=== PATIENT | male | born 1970 | race Caucasian/White ===

== ENCOUNTER 2017-04-24 17:45 | Emergency (ER) | payer OTHER ==
[~2017-04-24] VITALS: Wt 72.7 kg
[2017-04-24 18:09] VITALS: Wt 72.7 kg
[2017-04-24] MEDS ORDERED: IBUP-1542 PO (21:01)
--- NOTE | 2017-04-24 21:15 | ERD ---
ER Documentation Chief Complaint Date/Time DATE: 04/24/17 TIME: 21:08 Chief Complaint ru side pain HPI 47-year-old male is complaining of discomfort in his right upper quadrant area for last 2 days. Patient described his as a soreness or tenderness, sometimes cramp-like. The discomfort is continuous, but worse when he coughs or when he moves. Discomfort is not related to food intake. Denies any injuries. Denies shortness of breath. Denies fever or chills. Denies nausea, vomiting, or diarrhea. Denies dysuria ROS All systems reviewed and are negative except as per history of present illness. Medications Home Meds Active Scripts Ibuprofen* (Motrin*) 600 Mg Tab, 600 MG PO Q6H Y for PAIN AND OR ELEVATED TEMP, #30 TAB Prov:WHIT GENTILE MICA INSPECTOR 04/24/17 Allergies Allergies: Coded Allergies: No Known Allergy (Unverified , 11/03/14) PMhx/Soc Medical and Surgical Hx: pt denies Medical Hx, pt denies Surgical Hx History of Surgery: No Anesthesia Reaction: No Hx Neurological Disorder: No Hx Respiratory Disorders: No Hx Cardiac Disorders: No Hx Psychiatric Problems: No Hx Miscellaneous Medical Probl: No Hx Alcohol Use: No Hx Substance Use: No Hx Tobacco Use: No Smoking Status: Never smoker Physical Exam Vitals Vital Signs Date Time Temp Pulse Resp B/P Pulse Ox O2 Delivery O2 Flow Rate FiO2 04/24/17 18:09 98.3 97 20 131/76 98 Physical Exam General: Well-developed, well-nourished, conscious and coherent, in no distress Skin: Warm and dry without rash, good texture and turgor Head: Normocephalic without evidence of trauma Eyes: Sclera and conjunctivae normal; pupils equal, round, and reactive to light; extraocular movements are intact Chest: Normal AP diameter. Good expansion without retractions. Nontender. Lungs are clear to auscultate bilaterally with good tidal volume. Reproducible tenderness noted on the right lower ribs. Heart: Regular rate and rhythm. No murmur, rub, or gallops heard Abdomen: Soft and nontender without masses, guarding, or rebound. Bowel sounds are active. No hepatosplenomegaly. Back: Without spinal or CVA tenderness Pelvis: Nontender to palpation and stable to compression Extremities: Full range of motion. Good strength bilaterally. No clubbing, cyanosis, or edema. Peripheral pulses are intact. Sensation intact Neuro: Alert and oriented 4, GCS 15. Cranial nerves grossly intact. Motor and sensory exams nonfocal. Moves all extremities. Speech clear. Gait normal Procedures/MDM Well-appearing 47-year-old male present ED with discomfort in the right upper quadrant/right lower ribs. Patient does have reproducible point tenderness in the right lower ribs region. He did not have any abdominal tenderness on exam. Her low suspicion for acute appendicitis, cholecystitis, pancreatitis, bowel obstruction, or other acute abdomen. Likely has a muscle strain of the abdominal wall. Patient appears well, stable for discharge and outpatient management. Medical decision making shared with patient and family. Education provided to patient and family. Patient and family expressed understanding of the plan. Medications on discharge: Ibuprofen. Follow-up: Primary care provider in 2-3 days or return to ED if worse. Disclaimer: Inadvertent spelling and grammatical errors are likely due to EHR/ dictation software use and do not reflect on the overall quality of patient care. Also, please note that the electronic time recorded on this note does not necessarily reflect the actual time of the patient encounter. Departure Diagnosis: Primary Impression: Abdominal wall strain Encounter type: initial encounter Qualified Code: S39.011A - Strain of abdominal wall, initial encounter Condition: Stable Patient Instructions: Muscle Strain, Abdomen Referrals: DOCTOR,NOT ON STAFF Additional Instructions: Call your primary care doctor TOMORROW for an appointment during the next 2-3 days.See the doctor sooner or return here if your condition worsens before your appointment time. WHIT GENTILE NP Apr 24, 2017 21:15
== END 2017-04-24 21:36 | disposition home or self-care (01) ==
LOC: FTE 17:45
DX: S39.011A Strain of muscle, fascia and tendon of abdomen, initial encounter (principal); X58.XXXA Exposure to other specified factors, initial encounter; Y92.9 Unspecified place or not applicable
CPT/HCPCS: 99283

== ENCOUNTER 2017-11-30 20:10 | Emergency (ER) | END 2017-11-30 22:21 | disposition home or self-care (01) ==

== ENCOUNTER 2018-09-06 20:22 | Emergency (ER) | payer OTHER ==
[~2018-09-06] VITALS: Ht 180.3 cm; Wt 81.4 kg
[~2018-09-06 20:22] MED LIST: IBUP-1542 PO; OMEP20CA16 PO; ONDA4TAB14 PO; RANI150T35 PO
[2018-09-06 20:32] VITALS: BP 131/82; PULSE 86; RESP 18; Ht 180.3 cm; Wt 81.4 kg
[2018-09-06] MEDS ORDERED: CEPH-443 PO (23:24)
[2018-09-06] MEDS ORDERED: ACET500C5 PO (23:24)
--- NOTE | 2018-09-06 23:28 | ERD ---
ER Documentation Chief Complaint Chief Complaint pain/bruise left hand, glf about 5 days ago HPI 48-year-old male presents here to emergency department for complaints of an abrasion on the left head, fell on the head 5 days ago, had an abrasion on it, it is now red swollen with some yellowish discoloration, complains of pain throbbing pain, 4/10 scale, as was upon touching the area. Patient denies any joint deformity, denies any limitation of movement of the joint, denies any numbness or tingling, denies any fever or chills. Patient did not take any medications to help with symptoms ROS All systems reviewed and are negative except as per history of present illness. Medications Home Meds Active Scripts Cephalexin* (Keflex*) 500 Mg Capsule, 500 MG PO QID for 10 Days, CAP Prov:MEDARDO ROBLEDO NP 09/06/18 Acetaminophen* (Tylophen*) 500 Mg Capsule, 1 CAP PO Q6H PRN for PAIN AND OR ELEVATED TEMP, #20 CAP Prov:MEDARDO ROBLEDO NP 09/06/18 Ondansetron (Ondansetron Odt) 4 Mg Tab.rapdis, 4 MG PO Q6H PRN for NAUSEA AND/OR VOMITING, #20 TAB Prov:MUSTAPHA MCNEIL PA-C 11/30/17 Ranitidine Hcl* (Zantac*) 150 Mg Tablet, 150 MG PO BID PRN for EPIGASTRIC PAIN, #30 TAB Prov:MUSTAPHA CMNEIL PA-C 11/30/17 Omeprazole* (Omeprazole*) 20 Mg Capsule.dr, 20 MG PO DAILY, #20 Prov:MUSTAPHA MCNEIL PA-C 11/30/17 Ibuprofen* (Motrin*) 600 Mg Tab, 600 MG PO Q6H PRN for PAIN AND OR ELEVATED TEMP, #30 TAB Prov:WHIT GENTILE NP 04/24/17 Allergies Allergies: Coded Allergies: No Known Allergy (Unverified , 11/03/14) PMhx/Soc Medical and Surgical Hx: pt denies Medical Hx, pt denies Surgical Hx History of Surgery: No Anesthesia Reaction: No Hx Neurological Disorder: No Hx Respiratory Disorders: No Hx Cardiac Disorders: No Hx Psychiatric Problems: No Hx Miscellaneous Medical Probl: No Hx Alcohol Use: Yes Hx Substance Use: No Hx Tobacco Use: No Smoking Status: Never smoker FmHx Family History: No diabetes, No coronary disease, No other Physical Exam Vitals Vital Signs Date Temp Pulse Resp B/P (MAP) Pulse Ox O2 O2 Flow FiO2 Time Delivery Rate 09/06/18 97.5 86 18 131/82 98 20:32 (98) Physical Exam GENERAL: The patient is well developed and appropriate for usual state of health, in no apparent distress. CHEST: Clear to auscultation bilaterally. There are no rales, wheezes or rhonchi. HEART: Regular rate and rhythm. No murmurs, clicks, rubs or gallops. No S3 or S4. ABDOMEN: Soft, nontender and nondistended. Good bowel sounds. No rebound or guarding. No gross peritonitis. No gross organomegaly or masses. No Grace sign or McBurney point tenderness. BACK: No midline or flank tenderness. EXTREMITIES: Able to do full range of motion of the left hand and wrist without any restriction, no deformity noted. Equal pulses bilaterally. There is no peripheral clubbing, cyanosis or edema. No focal swelling or erythema. Full range of motion. Grossly neurovascularly intact. NEURO: Alert and oriented. Cranial nerves 2-12 intact. Motor strength in all 4 extremities with 5/5 strength. Sensation grossly intact. Normal speech and gait. SKIN: Noted abrasion on the left hand, noted erythema with mild tenderness on palpation no fluctuance noted. There is no apparent petechia. The skin is warm and dry. HEMATOLOGIC AND LYMPHATIC: There is no evidence of excessive bruising or lymphedema. No gross cervical, axillary, or inguinal lymphadenopathy. Procedures/MDM Medical Decision Making: Patient's pain is most likely consistent with a head contusion with an infected abrasion. There is no suspicion for neurovascular compromise. Patient has intact sensation and circulation of the affected extremity. There is low suspicion for septic arthritis. Patient does not have any fever. Radiology exams no joint involvement, no deformity, able to do full range of motion without any restriction. Disposition: Home. Patient is given prescription for Tylenol, Keflex. Patient was advised to elevate the affected area and apply ice on affected area. Patient was advised that if symptoms are worse, numbness, tingling, high fever, unable to move joint, worsening symptoms, to return to emergency department immediately. Otherwise, patient is advised to follow up with the primary care doctor in 5-7 days for reevaluation of symptoms. Disclaimer: Inadvertent spelling and grammatical errors are likely due to EHR/dictation software use and do not reflect on the overall quality of patient care. Also, please note that the electronic time recorded on this note does not necessarily reflect the actual time of the patient encounter. Departure Diagnosis: Primary Impression: Infected abrasion of left hand Encounter type: initial encounter Qualified Codes: S60.512A - Abrasion of left hand, initial encounter; L08.9 - Local infection of the skin and subcutaneous tissue, unspecified Additional Impression: Contusion, hand Encounter type: initial encounter Laterality: left Qualified Codes: S60.222A - Contusion of left hand, initial encounter Condition: Stable Patient Instructions: Abrasion, Contusion, Hand MEDARDO ROBLEDO NP Sep 06, 2018 23:28
== END 2018-09-06 23:40 | disposition home or self-care (01) ==
LOC: FTE 20:22
DX: S60.222A Contusion of left hand, initial encounter (principal); L08.9 Local infection of the skin and subcutaneous tissue, unspecified; W18.39XA Other fall on same level, initial encounter; Y92.9 Unspecified place or not applicable
CPT/HCPCS: 99283